=== PATIENT | male | born 1940 | race Caucasian/White ===

== ENCOUNTER → 2017-10-23 | Outpatient (CLI) | payer MEDICARE, OTHER ==
[~2017-10-23] MED LIST: ASPI81CH PO; ATOR40TA PO; CLARITIN10 MG PO; Citalopram HBr20 MG PO; Crestor20 MG PO; ESCI10 PO; GALA8 PO; INSDET100; LORA.5 PO; Lopressor 25 mg25 MG PO; METF500 PO; Multiple Vitam1 EAC1; Norvasc2.5 MG PO; Novolin R100 UNIT/M; PRAZ2 PO; RANI150 PO; TRET.1TC; ZESTORETIC 20-1 EACH PO
== END ==
LOC: LAB SHORT 11:26 → PLD 11:26
DX: C44.219 Basal cell carcinoma of skin of left ear and external auricular canal (principal)
CPT/HCPCS: 88305

== ENCOUNTER → 2018-10-22 | Outpatient (CLI) | payer MEDICARE, OTHER | END | disposition home or self-care (01) | LOC: LAB SHORT 14:35 → PLD 14:35 | DX: D48.5 Neoplasm of uncertain behavior of skin (principal) | CPT/HCPCS: 88305 ==

== ENCOUNTER → 2019-04-30 | Outpatient (CLI) | payer MEDICARE, OTHER | END | disposition home or self-care (01) | LOC: LAB SHORT 15:09 → PLD 15:09 | DX: D48.5 Neoplasm of uncertain behavior of skin (principal) | CPT/HCPCS: 88305 ==

== ENCOUNTER 2019-06-26 10:43 | Emergency (ER) | payer MEDICARE, OTHER ==
[~2019-06-26] VITALS: Ht 172.7 cm; Wt 84.1 kg
[2019-06-26] MEDS ORDERED: AMLO10 (11:07)
[2019-06-26] MEDS ORDERED: FINA5 (11:08)
[2019-06-26] MEDS ORDERED: Aspir 8181 MG PO (11:08)
[2019-06-26] MEDS ORDERED: DOXY100 (11:08)
[2019-06-26] MEDS ORDERED: ESCI10 PO (11:08)
[2019-06-26] MEDS ORDERED: GALA8 (11:09)
[2019-06-26] MEDS ORDERED: MICROZIDE12.5 M1 PO (11:09)
[2019-06-26] MEDS ORDERED: Ipratropium Bro30 ML NS (11:10)
[2019-06-26] MEDS ORDERED: Novolin R100 UNIT/M SC (11:10)
[2019-06-26] MEDS ORDERED: Zantac150 MG (11:11)
[2019-06-26] MEDS ORDERED: METO25 (11:11)
[2019-06-26] MEDS ORDERED: Loratadine10 MG PO (11:11)
[2019-06-26] MEDS ORDERED: PRAZ2 PO (11:11)
[2019-06-26] MEDS ORDERED: LEVEMIR FL100 UNIT/1 (11:12)
[2019-06-26] MEDS ORDERED: Flomax0.4 MG PO (11:12)
[2019-06-26] MEDS ORDERED: ROSU10TA (11:12)
[2019-06-26 11:40] LABS: BASOPHILS ABSOLUTE AUTO 0.01 K/mm3 (0.00-0.23); BASOPHILS PERCENT AUTO 0 % (0-2); EOSINOPHILS ABSOLUTE AUTO 0.09 K/mm3 (0.00-0.68); EOSINOPHILS PERCENT AUTO 1 % (0-6); Hematocrit 37.4 % (37.0-53.0); Hemoglobin 12.2 g/dL (13.5-17.5); IMMATURE GRAN ABSOLUTE AUTO 0.03 K/mm3 (0.00-0.10); IMMATURE GRAN PERCENT AUTO 0 % (0-1); LYMPHOCYTES PERCENT AUTO 35 % (21-46); MONOCYTES ABSOLUTE AUTO 0.53 K/mm3 (0.16-1.47); MONOCYTES PERCENT AUTO 6 % (4-13); Mean Corpuscular HGB 29.2 pg (26.0-34.0); Mean Corpuscular HGB Conc 32.6 g/dL (31.5-36.5); Mean Corpuscular Volume 90 fL (80-100); Mean Platelet Volume 12.1 fL (9.1-12.4); NEUTROPHILS ABSOLUTE AUTO 4.91 K/mm3 (1.96-9.15); NEUTROPHILS PERCENT AUTO 57 % (41-73); Platelet Count 188 K/mm3 (150-400); RDW Coefficient Variation 12.6 % (11.7-14.2); RDW Standard Deviation 41.3 fL (35.1-46.3); Red Blood Cell Count 4.18 M/mm3 (4.30-5.90); White Blood Cell Count 8.57 K/mm3 (4.00-11.30)
[2019-06-26 11:49] LABS: Alanine Aminotransfer (ALT/SGP 31 U/L (12-78); Albumin, Blood 3.8 g/dL (3.4-5.0); Albumin/Globulin Ratio 1.1 (0.8-1.8); Alk Phos 76 U/L (50-136); Anion Gap 8 mmol/L (6-16); Aspartate Aminotrans (AST/SGOT 20 U/L (12-37); Bilirubin, Total 0.4 mg/dL (0.1-1.0); Blood Urea Nitrogen 29 mg/dL (8-24); Bun/Creatinine Ratio 20.6 (12.0-20.0); CO2, Blood 28 mmol/L (21-32); Calcium, Blood 8.9 mg/dL (8.5-10.1); Chloride, Blood 103 mmol/L (98-108); Creatinine, Blood 1.41 mg/dL (0.60-1.20); Globulin, Blood 3.4 g/dL (2.2-4.0); Glomerular Filtration Rate 52 (60-); Glucose, Blood 87 mg/dL (70-99); Potassium, Blood 3.5 mmol/L (3.5-5.5); Sodium, Blood 139 mmol/L (136-145); Total Protein, Blood 7.2 g/dL (6.4-8.2); Troponin I <0.015 ng/mL (0.000-0.040)
[2019-06-26 11:56] LABS: PCO2 Arterial 21.7 mmHg (35-45); PO2 Arterial 122 mmHg (80-100); pH Blood Arterial 7.63 (7.35-7.45)
[2019-06-26] MEDS ORDERED: LORA1 SL (13:36)
== END 2019-06-26 14:25 | disposition home or self-care (01) ==
LOC: ER 10:43 → EDBD 10:43 → ER 14:25
PROVIDERS: Emergency Medicine
DX: R07.89 Other chest pain (principal); R06.4 Hyperventilation; E11.9 Type 2 diabetes mellitus without complications; I10 Essential (primary) hypertension; Z79.899 Other long term (current) drug therapy; Z79.4 Long term (current) use of insulin
CPT/HCPCS: 36600; 71046; 80053; 82803; 83690; 83880; 84484; 85025; 93005; 93010; 99285-25

== ENCOUNTER 2020-06-16 04:59 | Emergency (ER) | payer OTHER, MEDICARE ==
[~2020-06-16] VITALS: Ht 172.7 cm; Wt 81.7 kg
[~2020-06-16 04:59] MED LIST changes: +AMLO10; +Aspir 8181 MG PO; +DOXY100; +FINA5; +Flomax0.4 MG PO; +GALA8; +Ipratropium Bro30 ML NS; +LEVEMIR FL100 UNIT/1; +LORA1 SL; +Loratadine10 MG PO; +METO25; +MICROZIDE12.5 M1 PO; +Novolin R100 UNIT/M SC; +ROSU10TA; +Zantac150 MG
[2020-06-16] MEDS ORDERED: CENTRUM SILVER1 EAC2 PO (05:31)
[2020-06-16] MEDS ORDERED: LOSA25 PO (05:31)
[2020-06-16] MEDS ORDERED: FLUT.05NI (05:31)
[2020-06-16] MEDS ORDERED: METF500 PO (05:32)
[2020-06-16] MEDS ORDERED: OMEP20ER PO (05:32)
[2020-06-16 05:38] LABS: BASOPHILS ABSOLUTE AUTO 0.01 K/mm3 (0.00-0.23); BASOPHILS PERCENT AUTO 0 % (0-2); EOSINOPHILS ABSOLUTE AUTO 0.11 K/mm3 (0.00-0.68); EOSINOPHILS PERCENT AUTO 2 % (0-6); Hematocrit 36.1 % (37.0-53.0); Hemoglobin 11.6 g/dL (13.5-17.5); IMMATURE GRAN ABSOLUTE AUTO 0.04 K/mm3 (0.00-0.10); IMMATURE GRAN PERCENT AUTO 1 % (0-1); LYMPHOCYTES PERCENT AUTO 25 % (21-46); MONOCYTES PERCENT AUTO 7 % (4-13); Mean Corpuscular HGB 29.3 pg (26.0-34.0); Mean Corpuscular HGB Conc 32.1 g/dL (31.5-36.5); Mean Corpuscular Volume 91 fL (80-100); Mean Platelet Volume 11.5 fL (9.1-12.4); NEUTROPHILS ABSOLUTE AUTO 4.43 K/mm3 (1.96-9.15); NEUTROPHILS PERCENT AUTO 65 % (41-73); Platelet Count 131 K/mm3 (150-400); RDW Coefficient Variation 13.1 % (11.7-14.2); Red Blood Cell Count 3.96 M/mm3 (4.30-5.90); White Blood Cell Count 6.79 K/mm3 (4.00-11.30)
[2020-06-16 06:01] LABS: Alanine Aminotransfer (ALT/SGP 23 U/L (12-78); Albumin, Blood 3.6 g/dL (3.4-5.0); Alk Phos 96 U/L (50-136); Anion Gap 6 mmol/L (6-16); Aspartate Aminotrans (AST/SGOT 21 U/L (12-37); Bilirubin, Total 0.4 mg/dL (0.1-1.0); Blood Urea Nitrogen 24 mg/dL (8-24); Bun/Creatinine Ratio 22.2 (12.0-20.0); CO2, Blood 30 mmol/L (21-32); Calcium, Blood 8.5 mg/dL (8.5-10.1); Chloride, Blood 103 mmol/L (98-108); Creatinine, Blood 1.08 mg/dL (0.60-1.20); Globulin, Blood 3.6 g/dL (2.2-4.0); Glomerular Filtration Rate >60 (60-); Glucose, Blood 226 mg/dL (70-99); Potassium, Blood 3.5 mmol/L (3.5-5.5); Sodium, Blood 139 mmol/L (136-145); Total Protein, Blood 7.2 g/dL (6.4-8.2)
== END 2020-06-16 09:24 | disposition home or self-care (01) ==
LOC: ER 04:59
PROVIDERS: Emergency Medicine
DX: R41.82 Altered mental status, unspecified (principal); R56.9 Unspecified convulsions; R53.1 Weakness; Z79.4 Long term (current) use of insulin; Z79.899 Other long term (current) drug therapy; Z79.82 Long term (current) use of aspirin
CPT/HCPCS: 70450; 80053; 84484; 85025; 93005; 93010; 96374; 99284-25; J2405

== ENCOUNTER → 2020-10-19 | Outpatient (CLI) | payer MEDICARE, OTHER ==
[~2020-10-19] MED LIST changes: +CENTRUM SILVER1 EAC2 PO; +FLUT.05NI; +LOSA25 PO; +OMEP20ER PO
== END | disposition home or self-care (01) ==
LOC: LAB SHORT 11:21 → PLD 11:21
DX: D48.5 Neoplasm of uncertain behavior of skin (principal)
CPT/HCPCS: 88305

== ENCOUNTER 2025-01-13 14:36 | Emergency (ER) | payer MEDICARE ==
[~2025-01-13] VITALS: Ht 170.2 cm; Wt 73.5 kg
[2025-01-13 15:00] LABS: Source, Urine Clean Catch
[2025-01-13 15:15] LABS: BASOPHILS ABSOLUTE AUTO 0.01 K/mm3 (0.00-0.23); BASOPHILS PERCENT AUTO 0 % (0-2); EOSINOPHILS ABSOLUTE AUTO 0.00 K/mm3 (0.00-0.68); EOSINOPHILS PERCENT AUTO 0 % (0-6); Hematocrit 41.2 % (37.0-53.0); Hemoglobin 13.4 g/dL (13.5-17.5); IMMATURE GRAN ABSOLUTE AUTO 0.05 K/mm3 (0.00-0.10); IMMATURE GRAN PERCENT AUTO 1 % (0-1); LYMPHOCYTES ABSOLUTE AUTO 0.78 K/mm3 (0.84-5.20); LYMPHOCYTES PERCENT AUTO 9 % (21-46); MONOCYTES ABSOLUTE AUTO 0.52 K/mm3 (0.16-1.47); MONOCYTES PERCENT AUTO 6 % (4-13); Mean Corpuscular HGB Conc 32.5 g/dL (31.5-36.5); Mean Corpuscular Volume 91 fL (80-100); NEUTROPHILS ABSOLUTE AUTO 7.38 K/mm3 (1.96-9.15); NEUTROPHILS PERCENT AUTO 85 % (41-73); NRBC ABSOLUTE 0.00 K/mm3 (0.00-0.02); NRBC Auto 0.0 /100 WBC (0.0-0.2); Platelet Count 149 K/mm3 (150-400); RDW Coefficient Variation 13.4 % (11.7-14.2); RDW Standard Deviation 44.9 fL (35.1-46.3)
[2025-01-13 15:21] LABS: Bilirubin, Urine Neg (Neg); Color, Urine Yellow (P-Yellow); Glucose Qualitative, Urine 4+ (Neg); Ketones, Urine 1+ (Neg); Leukocyte Esterase, Urine Neg (Neg); Protein, Urine 2+ (Neg); Specific Gravity, Urine 1.010 (1.003-1.022); Urobilinogen, Urine NORM (Normal)
[2025-01-13 15:53] LABS: Alanine Aminotransfer (ALT/SGP 27.0 U/L (12-78); Albumin, Blood 3.6 g/dL (3.4-5.0); Albumin/Globulin Ratio 1.0 (0.8-1.8); Anion Gap 7.0 mmol/L (3-11); Aspartate Aminotrans (AST/SGOT 30.0 U/L (12-37); Bilirubin, Total 0.6 mg/dL (0.1-1.0); Blood Urea Nitrogen 27.0 mg/dL (8-24); CO2, Blood 27.0 mmol/L (21-32); Calcium, Blood 8.6 mg/dL (8.5-10.1); Chloride, Blood 102.0 mmol/L (98-108); Creatinine, Blood 1.08 mg/dL (0.60-1.20); Globulin, Blood 3.5 g/dL (2.2-4.0); Glucose, Blood 165.0 mg/dL (70-99); Potassium, Blood 3.7 mmol/L (3.5-5.5); Sodium, Blood 132.0 mmol/L (136-145); Total Protein, Blood 7.1 g/dL (6.4-8.2)
[2025-01-13 16:30] LABS: White Blood Cells, Urine 0-2 /hpf (0-5)
[2025-01-13] MEDS ORDERED: NS 1,000 ML IV SCH (18:10)
[2025-01-13] MEDS ORDERED: Ketorolac Tromethamine 15mg Vial IV ONE (20:35)
[2025-01-14] MEDS ORDERED: ELIQUIS5 M2 PO (12:28)
[2025-01-14] MEDS ORDERED: JARDIANCE10 MG PO (12:29)
[2025-01-14] MEDS ORDERED: FAMO20 PO (12:30)
[2025-01-14] MEDS ORDERED: BASAGLAR K100 UNIT/1 SC (12:32)
[2025-01-14] MEDS ORDERED: INSULIN AS100 UNIT/8 SC (12:33)
[2025-01-14] MEDS ORDERED: LOPE2C PO (12:34)
[2025-01-14] MEDS ORDERED: Bentyl10 MG/ML IM (12:35)
[2025-01-14] MEDS ORDERED: ACET325 PO (12:40)
[2025-01-14] MEDS ORDERED: METO25ER PO (12:42)
[2025-01-14 12:53] VITALS: BP 152/69
== END 2025-01-14 13:13 | disposition home or self-care (01) ==
LOC: ER 14:36
PROVIDERS: Student in an Organized Health Care Education/Training Program
DX: R53.1 Weakness (principal); E11.9 Type 2 diabetes mellitus without complications; I10 Essential (primary) hypertension; Z79.4 Long term (current) use of insulin; Z79.899 Other long term (current) drug therapy; Z79.84 Long term (current) use of oral hypoglycemic drugs; Z79.82 Long term (current) use of aspirin; Z88.8 Allergy status to other drugs, medicaments and biological substances
CPT/HCPCS: 71046; 72170; 80053; 81001; 82947; 84484; 85025; 87086; 93005; 93010; 96361; 96374; 97162; 97530; 99285-25; J1885; J7030

== ENCOUNTER 2025-02-10 20:31 | Emergency (ER) | payer MEDICARE ==
[~2025-02-10] VITALS: Ht 175.3 cm; Wt 72.6 kg
[~2025-02-10 20:31] MED LIST changes: +ACET325 PO; +BASAGLAR K100 UNIT/1 SC; +Bentyl10 MG/ML IM; +ELIQUIS5 M2 PO; +FAMO20 PO; +INSULIN AS100 UNIT/8 SC; +JARDIANCE10 MG PO; +LOPE2C PO; +METO25ER PO
[2025-02-10 21:10] LABS: BASOPHILS ABSOLUTE AUTO 0.03 K/mm3 (0.00-0.23); BASOPHILS PERCENT AUTO 1 % (0-2); EOSINOPHILS ABSOLUTE AUTO 0.09 K/mm3 (0.00-0.68); EOSINOPHILS PERCENT AUTO 1 % (0-6); Hematocrit 32.5 % (37.0-53.0); Hemoglobin 10.4 g/dL (13.5-17.5); IMMATURE GRAN ABSOLUTE AUTO 0.04 K/mm3 (0.00-0.10); IMMATURE GRAN PERCENT AUTO 1 % (0-1); LYMPHOCYTES ABSOLUTE AUTO 1.46 K/mm3 (0.84-5.20); LYMPHOCYTES PERCENT AUTO 22 % (21-46); MONOCYTES ABSOLUTE AUTO 0.49 K/mm3 (0.16-1.47); MONOCYTES PERCENT AUTO 8 % (4-13); Mean Corpuscular HGB Conc 32.0 g/dL (31.5-36.5); Mean Corpuscular Volume 89 fL (80-100); NEUTROPHILS ABSOLUTE AUTO 4.41 K/mm3 (1.96-9.15); NEUTROPHILS PERCENT AUTO 68 % (41-73); NRBC ABSOLUTE 0.00 K/mm3 (0.00-0.02); NRBC Auto 0.0 /100 WBC (0.0-0.2); Platelet Count 181 K/mm3 (150-400); RDW Coefficient Variation 13.9 % (11.7-14.2); RDW Standard Deviation 45.2 fL (35.1-46.3)
[2025-02-10 21:43] LABS: Alanine Aminotransfer (ALT/SGP 38.0 U/L (12-78); Albumin, Blood 2.3 g/dL (3.4-5.0); Albumin/Globulin Ratio 0.6 (0.8-1.8); Anion Gap 10.0 mmol/L (3-11); Aspartate Aminotrans (AST/SGOT 28.0 U/L (12-37); Bilirubin, Total 0.5 mg/dL (0.1-1.0); Blood Urea Nitrogen 36.0 mg/dL (8-24); CO2, Blood 25.0 mmol/L (21-32); Calcium, Blood 8.3 mg/dL (8.5-10.1); Chloride, Blood 100.0 mmol/L (98-108); Creatinine, Blood 1.02 mg/dL (0.60-1.20); Globulin, Blood 4.0 g/dL (2.2-4.0); Glucose, Blood 304.0 mg/dL (70-99); Potassium, Blood 3.7 mmol/L (3.5-5.5); Sodium, Blood 131.0 mmol/L (136-145); Total Protein, Blood 6.3 g/dL (6.4-8.2)
[2025-02-10] MEDS ORDERED: ONDA4ODT MM (22:28)
[2025-02-10 23:00] VITALS: BP 107/50
== END 2025-02-10 23:56 | disposition home or self-care (01) ==
LOC: ER 20:31
PROVIDERS: Emergency Medicine
DX: R55 Syncope and collapse (principal); R11.2 Nausea with vomiting, unspecified; E11.9 Type 2 diabetes mellitus without complications; I10 Essential (primary) hypertension; K21.9 Gastro-esophageal reflux disease without esophagitis; Z88.8 Allergy status to other drugs, medicaments and biological substances; Z79.899 Other long term (current) drug therapy; Z79.84 Long term (current) use of oral hypoglycemic drugs; Z79.01 Long term (current) use of anticoagulants; Z79.4 Long term (current) use of insulin; Z79.82 Long term (current) use of aspirin
CPT/HCPCS: 80053; 84484; 85025; 93005; 93010; 99284-25

== ENCOUNTER → 2025-04-02 | Outpatient (CLI) | payer MEDICARE ==
[~2025-04-02] MED LIST changes: +ONDA4ODT MM
[2025-04-02 13:50] LABS: Stool Occult Blood Guaiac 1 Neg (Neg)
== END | disposition home or self-care (01) ==
LOC: LAB SHORT 10:00 → LAB 10:00
PROVIDERS: Internal Medicine
DX: J85.2 Abscess of lung without pneumonia (principal); D64.9 Anemia, unspecified
CPT/HCPCS: 82272

== ENCOUNTER → 2025-04-03 | Outpatient (CLI) | payer MEDICARE ==
[2025-04-03 14:15] LABS: Stool Occult Bld Immuno 1 Negative (NEGATIVE)
== END ==
LOC: LAB SHORT 08:08 → LAB 08:08 → LAB FUT 04-01 14:55
PROVIDERS: Internal Medicine
DX: J85.2 Abscess of lung without pneumonia (principal); D64.9 Anemia, unspecified
CPT/HCPCS: 82274

== ENCOUNTER → 2025-04-05 | Outpatient (CLI) | payer MEDICARE ==
[2025-04-06 16:07] LABS: Stool Occult Blood Guaiac 1 Neg (Neg)
== END ==
LOC: LAB 13:30 → LAB SHORT 13:30
PROVIDERS: Internal Medicine
DX: D64.9 Anemia, unspecified (principal)
CPT/HCPCS: 82272